=== PATIENT | female | born 1945 | race Caucasian/White ===

== ENCOUNTER 2021-04-17 06:00 | Outpatient (RCR) | payer MEDICARE, BC, SELFPAY | END 2021-05-09 23:59 | disposition home or self-care (01) | LOC: GPT 06:00 | PROVIDERS: PCP Family Medicine; Referring Provider Orthopaedic Surgery; Visit Provider Orthopaedic Surgery | DX: S70.02XD Contusion of left hip, subsequent encounter (principal); X58.XXXD Exposure to other specified factors, subsequent encounter; M70.62 Trochanteric bursitis, left hip | CPT/HCPCS: 97032; 97110; 97140; 97162; 97530 ==

== ENCOUNTER 2021-05-10 06:00 | Outpatient (RCR) | payer MEDICARE, BC, SELFPAY | END 2021-06-09 23:59 | disposition home or self-care (01) | LOC: GPT 06:00 | PROVIDERS: PCP Family Medicine; Visit Provider Orthopaedic Surgery | DX: S70.02XD Contusion of left hip, subsequent encounter (principal); M70.62 Trochanteric bursitis, left hip; X58.XXXD Exposure to other specified factors, subsequent encounter | CPT/HCPCS: 97032; 97110; 97112; 97116; 97164; 97530 ==

== ENCOUNTER 2021-06-10 06:00 | Outpatient (RCR) | payer MEDICARE, BC, SELFPAY | END 2021-07-09 23:59 | disposition home or self-care (01) | LOC: GPT 06:00 | PROVIDERS: PCP Family Medicine; Visit Provider Orthopaedic Surgery | DX: M70.62 Trochanteric bursitis, left hip (principal) | CPT/HCPCS: 97110; 97112; 97116; 97164; 97530 ==

== ENCOUNTER 2021-07-10 06:00 | Outpatient (RCR) | payer MEDICARE, BC, SELFPAY | END 2021-08-09 23:59 | disposition home or self-care (01) | LOC: GPT 06:00 | PROVIDERS: PCP Family Medicine; Visit Provider Orthopaedic Surgery | DX: S70.02XA Contusion of left hip, initial encounter (principal); X58.XXXA Exposure to other specified factors, initial encounter; M70.62 Trochanteric bursitis, left hip | CPT/HCPCS: 97110; 97112 ==